=== PATIENT | female | born 1990 | race Caucasian/White ===

== ENCOUNTER 2017-10-09 10:48 | Emergency (ER) | payer OTHER, MEDICAID ==
[2017-10-09] MEDS ORDERED: LEXAPRO 10MG10 MG PO (10:57)
[2017-10-09] MEDS ORDERED: IBU800 M1 PO (10:57)
[2017-10-09] MEDS ORDERED: PERCOCET 325 MG1 TA2 PO (10:58)
[2017-10-09 12:02] VITALS: BP 122/68
== END 2017-10-09 12:03 | disposition home or self-care (01) ==
LOC: ED 10:48
DX: S40.012A Contusion of left shoulder, initial encounter (principal); W18.30XA Fall on same level, unspecified, initial encounter; Y92.009 Unspecified place in unspecified non-institutional (private) residence as the place of occurrence of the external cause
CPT/HCPCS: A4565

== ENCOUNTER 2017-11-08 08:31 | Emergency (ER) | payer OTHER ==
[~2017-11-08] VITALS: Ht 172.7 cm; Wt 108.6 kg
[~2017-11-08 08:31] MED LIST: IBU800 M1 PO; LEXAPRO 10MG10 MG PO; PERCOCET 325 MG1 TA2 PO
[2017-11-08] MEDS ORDERED: WELLBUTRIN XL150 M2 PO (08:43)
[2017-11-08] MEDS ORDERED: PROZAC40 M1 PO (08:44)
[2017-11-08] MEDS ORDERED: PAIN RELIEF EX500 MG PO (08:45)
[2017-11-08 09:31] LABS: EOS # 0.2 (0.04-0.40); EOS % 3.3 % (1.0-5.0); HEMATOCRIT 45.8 % (37.0-47.0); HEMOGLOBIN 15.1 g/dL (12.5-16.0); LYMPH# 1.8 (1.50-4.00); MEAN CELL VOLUME 93 fl (78-100); MEAN CORPUSCULAR HEMOGLOBIN 31 pg (27-31); MEAN CORPUSCULAR HGB CONC 33 g/dL (33-37); MEAN PLATELET VOLUME 9.9 fl (7.4-10.4); MONO # 0.6 (0.20-0.80); PLATELET COUNT 263 K/mm3 (130-400); RED BLOOD COUNT 4.94 M/mm3 (4.10-5.30); RED CELL DISTRIBUTION WIDTH 13.5 % (11.5-14.5); WHITE BLOOD COUNT 6.6 K/mm3 (4.8-10.8)
[2017-11-08 09:43] LABS: ALBUMIN 4.5 g/dL (3.5-5.0); BUN/CREATININE RATIO 19.3 (6.0-26.0); CALCIUM 9.2 mg/dL (8.4-10.2); POTASSIUM 4.2 mmol/L (3.6-5.0); TOTAL BILIRUBIN 0.3 mg/dL (0.2-1.3); TOTAL PROTEIN 7.8 g/dL (6.3-8.2)
[2017-11-08 09:55] LABS: URINE APPEARANCE CLEAR; URINE BILIRUBIN NEGATIVE (NEGATIVE); URINE BLOOD 50 ery/uL (NEGATIVE); URINE COLOR YELLOW; URINE GLUCOSE NEGATIVE (NEGATIVE); URINE KETONE NEGATIVE (NEGATIVE); URINE LEUKOCYTE ESTERASE NEGATIVE (NEGATIVE); URINE NITRATE NEGATIVE (NEGATIVE); URINE PROTEIN(semi-quant) NEGATIVE (NEGATIVE); URINE UROBILINOGEN NORMAL (NORMAL); URINE WBC 0-1 /hpf (0-3)
[2017-11-08] MEDS ORDERED: LEVSIN-SL0.125 MG SL (10:53)
[2017-11-08] MEDS ORDERED: ZOFRAN ODT8 M1 PO (10:53)
[2017-11-08 11:12] VITALS: BP 127/94
== END 2017-11-08 11:25 | disposition home or self-care (01) ==
LOC: ED 08:31
PROVIDERS: Physician Assistant
DX: K52.9 Noninfective gastroenteritis and colitis, unspecified (principal); F17.200 Nicotine dependence, unspecified, uncomplicated; M54.5 Low back pain
CPT/HCPCS: J1885; J2405; J7120; Q9967

== ENCOUNTER 2018-09-29 10:00 | Outpatient (RCR) | payer OTHER ==
[~2018-09-29 10:00] MED LIST changes: +LEVSIN-SL0.125 MG SL; +PAIN RELIEF EX500 MG PO; +PROZAC40 M1 PO; +WELLBUTRIN XL150 M2 PO; +ZOFRAN ODT8 M1 PO
== END 2018-10-19 | disposition home or self-care (01) ==
LOC: PT
DX: Z47.89 Encounter for other orthopedic aftercare (principal)

== ENCOUNTER → 2019-08-08 | Outpatient (CLI) | payer OTHER | LOC: LAB 13:42 | DX: Z51.81 Encounter for therapeutic drug level monitoring (principal); Z79.899 Other long term (current) drug therapy ==

== ENCOUNTER → 2019-09-11 | Outpatient (CLI) | payer OTHER ==
[2019-09-11 09:38] LABS: ALBUMIN 4.3 g/dL (3.5-5.0)
[2019-09-11 09:40] LABS: TOTAL PROTEIN 7.2 g/dL (6.4-8.3)
[2019-09-11 09:42] LABS: TOTAL BILIRUBIN 0.4 mg/dL (0.2-1.2)
[2019-09-11 09:46] LABS: DIRECT BILIRUBIN 0.2 mg/dL (0.0-0.5)
== END ==
LOC: LAB 09:09
PROVIDERS: Physician Assistant
DX: Z51.81 Encounter for therapeutic drug level monitoring (principal); Z79.899 Other long term (current) drug therapy

== ENCOUNTER → 2019-10-11 | Outpatient (CLI) | payer OTHER ==
[2019-10-11 10:27] LABS: ALBUMIN 4.1 g/dL (3.5-5.0)
[2019-10-11 10:29] LABS: TOTAL PROTEIN 6.8 g/dL (6.4-8.3)
[2019-10-11 10:31] LABS: TOTAL BILIRUBIN 0.3 mg/dL (0.2-1.2)
[2019-10-11 10:35] LABS: DIRECT BILIRUBIN 0.1 mg/dL (0.0-0.5)
== END ==
LOC: LAB 10:06
PROVIDERS: Physician Assistant
DX: Z51.81 Encounter for therapeutic drug level monitoring (principal); Z79.899 Other long term (current) drug therapy

== ENCOUNTER 2019-10-15 10:30 | Outpatient (RCR) | payer OTHER | END 2019-10-15 11:00 | disposition still patient (30) | LOC: PT 10:30 | DX: Z47.89 Encounter for other orthopedic aftercare (principal); Z98.890 Other specified postprocedural states ==

== ENCOUNTER 2020-07-08 09:30 | Outpatient (RCR) | payer OTHER | END 2020-07-08 10:00 | disposition still patient (30) | LOC: PT 09:30 | DX: Z98.890 Other specified postprocedural states (principal) ==

== ENCOUNTER → 2021-05-06 | Outpatient (CLI) | payer OTHER | LOC: RAD 08:47 | DX: M25.571 Pain in right ankle and joints of right foot (principal); M79.89 Other specified soft tissue disorders ==

== ENCOUNTER 2022-12-29 13:00 | Outpatient (RCR) | payer OTHER | END 2023-01-14 | disposition home or self-care (01) | LOC: PT | DX: M25.562 Pain in left knee (principal); Z98.890 Other specified postprocedural states ==